=== PATIENT | male | born 1970 | race Caucasian/White ===

== ENCOUNTER → 2019-09-08 16:34 | Outpatient (BNVA) | payer MEDICARE, BC, SELFPAY | PROVIDERS: Family Provider Family Medicine; PCP Family Medicine; Visit Provider Family Medicine | DX: Z94.0 Kidney transplant status (principal) | CPT/HCPCS: 80053; 82570; 84156; 85007; 85027 ==

== ENCOUNTER 2019-09-15 13:21 | Outpatient (CLI) | payer MEDICARE, BC, SELFPAY ==
--- NOTE | 2019-09-15 13:30 | US_ITS ---
WS: [id number] ULTRASOUND RENAL TECHNIQUE: Ultrasound examination of both kidneys. CLINICAL INFORMATION: Kidney transplant COMPARISON: September 13, 2018 FINDINGS: Renal transplant. Pelvic renal transplant in the left lower pelvis. Transplant kidney has a normal ap pearance. No hydronephrosis. Normal medullary pyramids. Normal cortex. Normal peak systolic velocities in the transplanted renal artery. No flow-limiting stenosis. Normal v enous phasicity. Resistive indices are within normal limits ranging from 0.57 to 0.71 Renal transplant measures approximately 12.7 x 6.6 x 5.5 cm Renal transplant cortex measures 1.5 cm ATROPHIC KAKE KIDNEYS Right kidney measures: 8.0 x 5.2 x 5.2 cm Left kidney measures: 8.6 x 4.9 x 4.7 cm Normal visualized aorta. US/US renal BI* [id number] IMPRESSION: 1. Normal corticomedullary echogenicity involving the left lower quadrant renal pelvic transplant. 2. Normal systolic velocities in the transplanted renal artery with normal veno us phasicity. Normal renal parenchymal resistive indices. 4. Slightly atrophic and nonfunctioning resighini kidneys.
--- NOTE | 2019-09-15 14:43 | XR_ITS ---
WS: [id number] SCREENING DEXA SCAN [place] CLINICAL INFORMATION: KIDNEY TRANSPLANT RECIPIENT, OSTEOPOROSIS COMPARISON: FINDINGS: Left forearm bone mineral density measures 0.73 with T score of -2.1 and Z score of -2.1 Left femoral neck bone mineral density measures 0.834 g/cm2. This corresponds to a T score of -1.9 an d Z score of -2.0. Right femoral neck bone mineral density measures 0.831 g/cm2. This corresponds to a T score -1.9of an d Z score of -2.0. Mean femoral neck bone mineral density measures 0.833 g/cm2. This corresponds to a T score of -1.9 an d Z score of -2.0. XR/XR DEXA axial skeleton* [id number] IMPRESSION: Osteopenia. Patient's FRAX calculated 10 year probability for major osteoporotic fracture i s 6.8 % and osteoporotic hip fracture is 2.0%. Since 2019, Left forearm bone mineral density has decreased -2.2% and increased 5.2% in the femoral necks.
== END 2019-09-15 13:22 | disposition home or self-care (01) ==
LOC: RAD 13:21
PROVIDERS: Family Provider Family Medicine; PCP Family Medicine; Visit Provider Family Medicine
DX: Z94.0 Kidney transplant status (principal); M81.0 Age-related osteoporosis without current pathological fracture; N26.1 Atrophy of kidney (terminal); N28.9 Disorder of kidney and ureter, unspecified
CPT/HCPCS: 76770; 77080

== ENCOUNTER → 2019-09-20 10:05 | Outpatient (BNVA) | payer MEDICARE, BC, SELFPAY | PROVIDERS: Family Provider Family Medicine; PCP Family Medicine; Referring Provider Family Medicine; Visit Provider Family Medicine | DX: Z94.0 Kidney transplant status (principal) | CPT/HCPCS: 80053; 80197; 85025 ==

== ENCOUNTER 2019-09-21 09:18 | Day surgery (SDC) | payer MEDICARE, BC, SELFPAY ==
[2019-09-20 14:09] VITALS: BMI 30.9
[2019-09-21 10:47] VITALS: BP 141/92; PULSE 75; RESP 18; TEMP 36.4; O2SAT 98
--- NOTE | 2019-09-21 11:00 | PM.HPUD ---
H&P update H&P Update: DATE OF SURGERY/PROCEDURE: 09/21/19 DATE H&P PERFORMED: 09/14/19 H&P UPDATE INFORMATION: H&P completed within last 30 days and No changes to prior documentation PREOP DIAGNOSIS: History of Dodd's esophagus PLANNED PROCEDURE: Operation Date: 09/21/19 11:30 Proposed Procedures p EGD 07948 K22.10(Not Applicable) - Brayan Hanna MD Full H&P Perinent History: Medical/Surgical History: Medical History (Updated 09/15/19 @ 10:22 by Brayan Hanna MD) Anxiety (Acute) Dodd's esophagus (Chronic) Chronic pain syndrome (Acute) DDD (degenerative disc disease) (Acute) Diabetes (Acute) Hypertension (Acute) Neuropathy (Acute) Peripheral artery disease (Acute) Family History: Family History (Updated 09/14/19 @ 13:39 by FELICIA Rosa) Denies family history of Anesthesia complication Bleeding disorder Social History: Social History Smoking and tobacco status: never smoked Alcohol intake: current Lives independently: Yes Household members: significant other and family Current occupational status: disabled History of recent travel: No
[2019-09-21] MEDS: sodium chloride 0.9% 1,000 ML 30 ML (11:02)
--- NOTE | 2019-09-21 11:31 | ANES.PREANES ---
Pre-Anesthetic Assessment Pre-Anesthetic Assessment: Height/Weight: Height 1.88 m Weight 109.316 kg Temp Pulse Resp BP Pulse Ox 97.6 F 75 18 141/92 98 09/21/19 10:47 09/21/19 10:47 09/21/19 10:47 09/21/19 10:47 09/21/19 10:47 Preop Diagnosis: History of Dodd's esophagus Proposed Procedure: Operation Date: 09/21/19 11:30 Proposed Procedures p EGD 51484 K22.10(Not Applicable) - Brayan Hanna MD Last intake: Intake Last Liquid Date 09/20/19 Last Liquid Time 23:55 Last Solid Date 09/20/19 Last Solid Time 23:55 Social: Social History: Alcohol Exam: Pre-Anes Outpt Exam: alert, oriented x 3, clear to auscultation bilaterally and regular rate & rhythm Airway: Submandibular: WNL Cervical ROM: WNL MP: 2 Dentition: Full History/ROS: No significant history except as noted and No significant complaints Pulmonary: Pulmonary: None reported CV/HEM: CV/HEM: HTN : Comments: hx kidney tx GI: GI: GERD Metabolic: Metabolic: Thyroid Musc/skel: Musc/skel: Lower Back Pain Neuropsych: Neuropsych: Anxiety and Neuropathy Anesthetic Plan: ASA status: III Anesthesia: Anesthesia Evaluation and MAC Risk of > 500 ml blood loss (7ml/kg in children): No PFSH Anesthesia PFSH: Medical History (Updated 09/15/19 @ 10:22 by Brayan Hanna MD) Anxiety (Acute) Dodd's esophagus (Chronic) Chronic pain syndrome (Acute) DDD (degenerative disc disease) (Acute) Diabetes (Acute) Hypertension (Acute) Neuropathy (Acute) Peripheral artery disease (Acute) Surgical History (Updated 09/15/19 @ 10:20 by Brayan Hanna MD) History of colonoscopy (Acute 2016) History of excision of mass (Acute) History of hand surgery (Acute) Bilateral index knuckle replaced. History of kidney transplant (Acute) Status post insertion of spinal cord stimulator (Acute) Family History (Updated 09/14/19 @ 13:39 by FELICIA Rosa) Denies family history of Anesthesia complication Bleeding disorder Social History Smoking and tobacco status: never smoked Alcohol intake: current Lives independently: Yes Household members: significant other and family Current occupational status: disabled History of recent travel: No Data Anesthesia Cardiac Studies: No Data to Display
[2019-09-21 12:26] VITALS: BP 122/80; PULSE 88; RESP 16; TEMP 36.8; O2SAT 98
[2019-09-21 12:49] VITALS: BP 128/75; PULSE 80; RESP 18; TEMP 36.7; O2SAT 98
[2019-09-22 05:55] LABS: H. Pylori / CLO Test Negative
== END 2019-09-21 13:10 | disposition home or self-care (01) ==
PROVIDERS: Family Provider Family Medicine; PCP Family Medicine; Visit Provider Surgery
PROC: 0DJ08ZZ Inspection of Upper Intestinal Tract, Via Natural or Artificial Opening Endoscopic (ICD-10-PCS; CPT 43235; principal; 2019-09-21 11:30)
DX: K21.0 Gastro-esophageal reflux disease with esophagitis (principal); K22.70 Barrett's esophagus without dysplasia; K29.70 Gastritis, unspecified, without bleeding; Z79.891 Long term (current) use of opiate analgesic; Z79.52 Long term (current) use of systemic steroids; E11.40 Type 2 diabetes mellitus with diabetic neuropathy, unspecified; G89.4 Chronic pain syndrome; I10 Essential (primary) hypertension
CPT/HCPCS: 12345; 43239; 87077; 88305; 96365; J2405; J2704; J7030

== ENCOUNTER 2019-10-12 14:22 | Emergency (ER) | payer MEDICARE, BC, SELFPAY ==
[2019-10-12 14:32] VITALS: BP 155/115; PULSE 110; RESP 18; O2SAT 98; BMI 30.8
== END 2019-10-12 15:02 | disposition left against medical advice (07) ==
LOC: ER 14:42
PROVIDERS: Emergency Provider Nurse Practitioner Family; Family Provider Family Medicine; PCP Family Medicine
DX: S61.412A Laceration without foreign body of left hand, initial encounter (principal); X58.XXXA Exposure to other specified factors, initial encounter; Z53.21 Procedure and treatment not carried out due to patient leaving prior to being seen by health care provider
CPT/HCPCS: 99281

== ENCOUNTER → 2019-11-04 14:10 | Outpatient (BNVA) | payer MEDICARE, BC, SELFPAY | PROVIDERS: Family Provider Family Medicine; PCP Family Medicine; Visit Provider Nurse Practitioner | DX: J02.9 Acute pharyngitis, unspecified (principal); R05 Cough | CPT/HCPCS: 87400 ==

== ENCOUNTER → 2019-11-08 09:37 | Outpatient (BNVA) | payer MEDICARE, BC, SELFPAY | PROVIDERS: Family Provider Family Medicine; PCP Family Medicine; Visit Provider Family Medicine | DX: Z94.0 Kidney transplant status (principal) | CPT/HCPCS: 80053; 80197; 85007; 85027 ==

== ENCOUNTER → 2019-11-28 10:38 | Outpatient (BNVA) | payer MEDICARE, BC, SELFPAY | PROVIDERS: Family Provider Family Medicine; PCP Family Medicine; Visit Provider Family Medicine | DX: Z94.0 Kidney transplant status (principal) | CPT/HCPCS: 80053; 80197; 82310; 83970; 85025 ==

== ENCOUNTER → 2020-02-02 09:08 | Outpatient (BNVA) | payer MEDICARE, BC, SELFPAY | PROVIDERS: Family Provider Family Medicine; PCP Family Medicine; Referring Provider Family Medicine; Visit Provider Family Medicine | DX: Z94.0 Kidney transplant status (principal) | CPT/HCPCS: 80053; 80197; 82310; 83970; 85025 ==

== ENCOUNTER → 2020-02-09 09:27 | Outpatient (BNVA) | payer MEDICARE, BC, SELFPAY | PROVIDERS: Family Provider Family Medicine; PCP Family Medicine; Visit Provider Family Medicine | DX: Z94.0 Kidney transplant status (principal) | CPT/HCPCS: 80053; 80197; 81003; 82310; 82575; 83970; 84156; 85007; 85027 ==

== ENCOUNTER 2020-03-02 14:11 | Outpatient (CLI) | payer MEDICARE, BC, SELFPAY ==
[2020-03-02 14:51] LABS: Basophils % 0.7 %; Eosinophils % 0.5 %; Hematocrit 42.9 % (42.0-52.0); Hemoglobin 14.5 g/dL (11.7-16.6); Lymphocytes # 0.5 10^3/uL (0.8-4.8); Lymphocytes % 8.2 %; Mean Corpuscular HGB Conc 33.8 g/dL (30.0-36.0); Mean Corpuscular Hemoglobin 30.3 pg (28.0-34.0); Mean Corpuscular Volume 89.7 fL (80-94); Mean Platelet Volume 10.5 fL (7.4-10.4); Monocytes # 0.4 10^3/uL (0.2-0.9); Monocytes % 6.3 %; Neutrophils # 4.82 10^3/uL (1.8-7.7); Nucleated Red Blood Cells % 0 %; Platelet Count 189 10^3/cmm (130-400); Red Blood Count 4.78 10^6/uL (4.1-5.3); Red Cell Distribution Width 12.3 % (12.1-15.1); White Blood Count 5.7 10^3/uL (4.0-10.0)
[2020-03-02 15:03] LABS: Alanine Aminotransferase 97 U/L (0-41); Albumin Level 4.2 g/dL (3.5-5.2); Alkaline Phosphatase 84 IU/L (40-130); Anion Gap 16.9 (5-19); Aspartate Amino Transferase 70 U/L (0-40); Blood Urea Nitrogen 17 mg/dL (6-20); Calcium 8.7 mg/dL (8.5-10.5); Carbon Dioxide 25 mmol/L (22-29); Chloride 97 mmol/L (98-107); Globulin 2.8 g/dL (1.3-4.6); Glomerular Filtration Rate 58.9 mL/min (90-130); Glucose 345 mg/dL (65-115); Osmolality Calculated 288 mOsm/kg (285-295); Potassium 4.9 mmol/L (3.5-5.1); Sodium 134 mmol/L (136-145); Total Bilirubin 0.4 mg/dL (0.15-1.2)
[2020-03-02 15:04] LABS: Bilirubin Urine Neg (NEGATIVE); Blood Urine 2+ (Negative); Glucose Urine UA 4+ (Normal); Ketones Urine Negative (Negative); Nitrate Urine Negative (Negative); Protein Urine Trace (Negative); Specific Gravity, Urine 1.015 (1.005-1.030); Urine Appearance Clear (CLEAR); Urine Color Yellow (Yellow); Urobilinogen Urine Norm (Negative); pH Urine 5 (5-7)
[2020-03-02 15:05] LABS: Add Urine Microscopic? YES; Leukocyte Esterase Urine Negative (Negative)
[2020-03-02 15:11] LABS: RBC Urine 0-4 /hpf (0-2)
[2020-03-02 15:12] LABS: Add Urine Culture? No; Bacteria Urine TRACE; Squamous Epithelial Cell Urine 0-4 (0-5); WBC Urine 0-4 /hpf (0-5)
[2020-03-02 15:23] LABS: Urine Creatinine 144 mg/dL (39-259)
[2020-03-02 15:27] LABS: UPRO/UCREAT Ratio 0.36 mg/mg CR; Urine Protein Random 52 mg/dL
[2020-03-02 17:51] LABS: Parathyroid Hormone 75.9 pg/mL (15-65)
== END 2020-03-02 14:12 | disposition home or self-care (01) ==
LOC: LAB 14:15
PROVIDERS: Family Provider Family Medicine; PCP Family Medicine; Visit Provider Clinical Nurse Specialist Adult Health
DX: Z94.0 Kidney transplant status (principal)
CPT/HCPCS: 80053; 80197; 81001; 81003; 82310; 82570; 83970; 84156; 85025

== ENCOUNTER → 2020-03-27 09:35 | Outpatient (BNVA) | payer MEDICARE, BC, SELFPAY | PROVIDERS: Family Provider Family Medicine; PCP Family Medicine; Visit Provider Family Medicine | DX: Z48.22 Encounter for aftercare following kidney transplant (principal) | CPT/HCPCS: 80053; 80197; 81000; 82575; 84156; 85025 ==

== ENCOUNTER 2020-03-29 09:01 | Outpatient (CLI) | payer MEDICARE, BC, SELFPAY ==
--- NOTE | 2020-03-29 09:30 | US_ITS ---
WS: [id number] Complete ABDOMINAL ULTRASOUND HISTORY: right upper quadrant pain COMPARISON: None available. Liver: 20.4 cm in length. Liver is moderate to severely enlarged. There is significant attenuation re sulting in poor visualization of the entire liver. Marked hepatic steatosis. No mass identified but t he entire liver is not well visualized. No bile duct dilatation. Gallbladder: Normally distended with no gallstones, wall thickening or pericholecystic fluid. Gallbladder wall thickness: 0.3 cm. Pancreas: Normal size and echogenicity. CBD: 0.3 cm. [place] kidneys are severely atrophied. There is a transplanted kidney just below the [place] LEFT kidn ey. Normal size of the transplanted kidney measures 13.2 cm in length. No hydronephrosis or perinephr ic fluid collections. Spleen: Normal size and echogenicity. Abdominal aorta and IVC are within normal limits. No ascites. US/US abdomen complete* [id number] IMPRESSION: 1. Transplanted LEFT kidney in the LEFT abdomen with no apparent complications . 2. Severe atrophy of the [place] kidneys. 3. Severe hepatic steatosis and moderate to severe hepatomegaly. 4. Normal gallbladder.
== END 2020-03-29 09:02 | disposition home or self-care (01) ==
LOC: US 09:01
PROVIDERS: PCP Family Medicine; Visit Provider Family Medicine
DX: R16.0 Hepatomegaly, not elsewhere classified; K76.0 Fatty (change of) liver, not elsewhere classified; R10.11 Right upper quadrant pain; Z94.0 Kidney transplant status
CPT/HCPCS: 76700

== ENCOUNTER → 2020-07-25 09:17 | Outpatient (BNVA) | payer MEDICARE, BC, SELFPAY | PROVIDERS: PCP Family Medicine; Visit Provider Family Medicine | DX: Z94.0 Kidney transplant status (principal); Z94.83 Pancreas transplant status; Z84.89 Family history of other specified conditions | CPT/HCPCS: 80053; 80197; 81000; 82310; 82340; 83970; 84156; 85025 ==

== ENCOUNTER 2020-09-07 15:54 | Outpatient (CLI) | payer MEDICARE, BC, SELFPAY ==
--- NOTE | 2020-09-07 16:15 | XR_ITS ---
WS: [id number] DEXA (DUAL ENERGY X-RAY ABSORPTIOMETRY) Bone mineral density was performed using a [employer] machine. HISTORY: M85.89 OTHER SPECIFIED DISORDERS OF THE BONE, 50-year-old male. COMPARISON: 09/15/2019 Left forearm BMD: 0.769 g/cm2. T score: -2.2 Z score: -2.2 Total hip BMD: Left: 0.798 g/cm2. T score: -2.1 Z score: -2.2 Right: 0.821 g/cm2. T score: -1.9 Z score: -2.1 10 year probability of a major osteoporotic fracture is 9%. Compared to the prior study from . LEFT forearm bone mineral density has decreased by 1.8%. Bilateral hips bone mineral density has decreased by 2.9%. XR/XR DEXA axial skeleton* [id number] IMPRESSION: OSTEOPENIA. Significant decrease in bone mineral density within the hips since the prior st udy. No significant change in forearm bone mineral density.
== END 2020-09-07 15:55 | disposition home or self-care (01) ==
LOC: RADWPI 15:56
PROVIDERS: PCP Family Medicine; Visit Provider Family Medicine
DX: M85.89 Other specified disorders of bone density and structure, multiple sites (principal)
CPT/HCPCS: 77080

== ENCOUNTER → 2020-09-10 09:22 | Outpatient (BNVA) | payer MEDICARE, BC, SELFPAY | PROVIDERS: PCP Family Medicine; Referring Provider Family Medicine; Visit Provider Internal Medicine | DX: E03.9 Hypothyroidism, unspecified (principal); E11.65 Type 2 diabetes mellitus with hyperglycemia | CPT/HCPCS: 36415; 83036; 84439; 84443; 99205 ==

== ENCOUNTER 2020-09-10 10:31 | Outpatient (CLI) | payer MEDICARE, BC, SELFPAY ==
[2020-09-10 14:05] LABS: Free T4 Free Thyroxine 1.72 ng/dL (0.82-1.77); Thyroid Stimulating Hormone 1.38 uIU/mL (0.27-4.20)
[2020-09-10 15:54] LABS: Estmated Average Glucose 229; Hemoglobin A1C 9.6 % (4.0-6.0)
== END 2020-09-10 10:32 | disposition home or self-care (01) ==
PROVIDERS: PCP Family Medicine; Visit Provider Internal Medicine
DX: E03.9 Hypothyroidism, unspecified (principal); E11.65 Type 2 diabetes mellitus with hyperglycemia
CPT/HCPCS: 36415; 83036; 84439; 84443

== ENCOUNTER 2020-09-11 09:06 | Outpatient (CLI) | payer MEDICARE, BC, SELFPAY ==
--- NOTE | 2020-09-11 | US_ITS ---
RENAL ULTRASOUND HISTORY: kidney transplant COMPARISON: None available. TECHNIQUE: 2-D and color Doppler imaging of the kidney submitted. Right kidney: 8.0 cm x 4.7 cm x 4.8 cm. Severe atrophy and increased echogenicity of the [place] RIGHT kidney. Left kidney: 9.4 cm x 4.5 cm x 4.3 cm. Severe atrophy and increased echogenicity [place] LEFT kidney. There is a transplanted kidney in the LEFT pelvis/abdomen. Normal size kidney measures 12.9 cm in length. There is no hydronephrosis. Normal cortical medullary differentiation. No mass or perinephric fluid collection. There is normal vascularity to the kidney. There is normal systolic and diastolic velocity throughout the transplanted kidney. Velocities are less than 100 cm/s. Very slight increase in the diastolic velocities. Overall very similar appearance as compared to the prior study. Prior to the anastomosis the velocities are slightly increased but stable. As compared to the prior study 09/15/2019 there is been no significant increase in the diastolic versus systolic velocities. There is normal venous flow. Aorta: Normal. Urinary Bladder: Normal distention. IMPRESSION: 1. Transplanted kidney in the LEFT pelvis is stable. No atrophy, venous congestion or perinephric fluid collection. 2. Overall the velocities and waveforms are stable since 09/15/2019. No evidence for developing stenosis. [facility] BI* [id number] IMPRESSION: 1. Transplanted kidney in the LEFT pelvis is stable. No atrophy, venous conges tion or perinephric fluid collection. 2. Overall the velocities and waveforms are stable since 09/15/2019. No evidenc e for developing stenosis.
--- NOTE | 2020-09-11 | US_ITS ---
RENAL ULTRASOUND HISTORY: kidney transplant COMPARISON: None available. TECHNIQUE: 2-D and color Doppler imaging of the kidney submitted. Right kidney: 8.0 cm x 4.7 cm x 4.8 cm. Severe atrophy and increased echogenicity of the [place] RIGHT kidney. Left kidney: 9.4 cm x 4.5 cm x 4.3 cm. Severe atrophy and increased echogenicity [place] LEFT kidney. There is a transplanted kidney in the LEFT pelvis/abdomen. Normal size kidney measures 12.9 cm in length. There is no hydronephrosis. Normal cortical medullary differentiation. No mass or perinephric fluid collection. There is normal vascularity to the kidney. There is normal systolic and diastolic velocity throughout the transplanted kidney. Velocities are less than 100 cm/s. Very slight increase in the diastolic velocities. Overall very similar appearance as compared to the prior study. Prior to the anastomosis the velocities are slightly increased but stable. As compared to the prior study 09/15/2019 there is been no significant increase in the diastolic versus systolic velocities. There is normal venous flow. Aorta: Normal. Urinary Bladder: Normal distention. IMPRESSION: 1. Transplanted kidney in the LEFT pelvis is stable. No atrophy, venous congestion or perinephric fluid collection. 2. Overall the velocities and waveforms are stable since 09/15/2019. No evidence for developing stenosis. MTDD
--- NOTE | 2020-09-11 09:30 | US_ITS ---
WS: [id number] RENAL ULTRASOUND HISTORY: kidney transplant COMPARISON: None available. TECHNIQUE: 2-D and color Doppler imaging of the kidney submitted. Right kidney: 8.0 cm x 4.7 cm x 4.8 cm. Severe atrophy and increased echogenicity of the [place] RIGHT kidney. Left kidney: 9.4 cm x 4.5 cm x 4.3 cm. Severe atrophy and increased echogenicity [place] LEFT kidney. There is a transplanted kidney in the LEFT pelvis/abdomen. Normal size kidney measures 12.9 cm in [place] gth. There is no hydronephrosis. Normal cortical medullary differentiation. No mass or perinephric fl uid collection. There is normal vascularity to the kidney. There is normal systolic and diastolic mary carmen ocity throughout the transplanted kidney. Velocities are less than 100 cm/s. Very slight increase in the diastolic velocities. Overall very similar appearance as compared to the prior study. Prior to th e anastomosis the velocities are slightly increased but stable. As compared to the prior study 020 there is been no significant increase in the diastolic versus systolic velocities. There is myranda l venous flow. Aorta: Normal. Urinary Bladder: Normal distention.
== END 2020-09-11 09:07 | disposition home or self-care (01) ==
LOC: US 09:07
PROVIDERS: PCP Family Medicine; Visit Provider Family Medicine
DX: Z94.0 Kidney transplant status (principal)
CPT/HCPCS: 76770; 76776; 93975

== ENCOUNTER → 2020-09-26 10:10 | Outpatient (BNVA) | payer MEDICARE, BC, SELFPAY | PROVIDERS: PCP Family Medicine; Visit Provider Family Medicine | DX: Z94.0 Kidney transplant status (principal); E03.9 Hypothyroidism, unspecified; E11.65 Type 2 diabetes mellitus with hyperglycemia; F41.9 Anxiety disorder, unspecified | CPT/HCPCS: 80053; 80197; 81000; 82310; 82570; 83970; 84156; 85025 ==

== ENCOUNTER → 2020-10-17 09:55 | Outpatient (BNVA) | payer MEDICARE, BC, SELFPAY | PROVIDERS: PCP Family Medicine; Visit Provider Family Medicine | DX: Z94.0 Kidney transplant status (principal); E03.9 Hypothyroidism, unspecified; E11.65 Type 2 diabetes mellitus with hyperglycemia; Z79.899 Other long term (current) drug therapy | CPT/HCPCS: 80053; 80197; 82306; 82310; 83970; 85025 ==

== ENCOUNTER → 2020-11-05 09:59 | Outpatient (BNVA) | payer MEDICARE, BC, SELFPAY | PROVIDERS: PCP Family Medicine; Visit Provider Internal Medicine | DX: E03.9 Hypothyroidism, unspecified (principal); E11.65 Type 2 diabetes mellitus with hyperglycemia; E21.3 Hyperparathyroidism, unspecified | CPT/HCPCS: 99215 ==

== ENCOUNTER → 2020-12-04 09:51 | Outpatient (BNVA) | payer MEDICARE, BC, SELFPAY | PROVIDERS: PCP Family Medicine; Visit Provider Family Medicine | DX: Z94.0 Kidney transplant status (principal) | CPT/HCPCS: 80197; 85025 ==

== ENCOUNTER → 2021-01-01 09:16 | Outpatient (BNVA) | payer MEDICARE, BC, SELFPAY | PROVIDERS: PCP Family Medicine; Visit Provider Family Medicine | DX: Z94.0 Kidney transplant status (principal); E03.9 Hypothyroidism, unspecified; E11.65 Type 2 diabetes mellitus with hyperglycemia; Z79.899 Other long term (current) drug therapy | CPT/HCPCS: 80053; 80197; 82306; 82310; 83970; 85025 ==

== ENCOUNTER 2021-04-01 10:27 | Outpatient (CLI) | payer MEDICARE, BC, SELFPAY ==
--- NOTE | 2021-04-01 11:00 | USCV_ITS ---
You Wyatt Age: 50 Gender: M : 1970 Exam Date: 04/01/2021 11:05 Ordering Phys: Ivan Galindo MD Technologist: EARLENE [place] [facility] [place]: PAIN AND SWELLING RT LEG 4 DAYS PROCEDURES: Venous duplex imaging was performed in only the right lower extremity. The following venous structures were evaluated: common femoral vein, profunda vein, proximal portion of the greater saphenous vein, superficial femoral vein, and the popliteal vein. In addition, the posterior tibial and peroneal trunk were evaluated. Serial compression, augmentation maneuvers, and spectral Doppler flow evaluation were performed. FINDINGS: Thrombus noted in the right lower extremity extending from the mid femoral vein to the peroneal. All other veins that were evaluated appear free of thrombus at this time. CONCLUSIONS Occlusive DVT right midfemoral vein extending thru popliteal into peroneal vein. Dr Galindo notified of prelim at time of exam Juan Nelson MD (Electronically Signed) Final Date: 01 April 2021 17:46 S
== END 2021-04-01 10:28 | disposition home or self-care (01) ==
LOC: RAD 10:30
PROVIDERS: PCP Family Medicine; Visit Provider Family Medicine
DX: M79.604 Pain in right leg (principal); M79.89 Other specified soft tissue disorders; I82.411 Acute embolism and thrombosis of right femoral vein
CPT/HCPCS: 93971

== ENCOUNTER → 2021-06-27 08:58 | Outpatient (BNVA) | payer MEDICARE, BC, SELFPAY | PROVIDERS: PCP Family Medicine; Visit Provider Internal Medicine | DX: E11.65 Type 2 diabetes mellitus with hyperglycemia (principal); E03.9 Hypothyroidism, unspecified; I73.9 Peripheral vascular disease, unspecified; Z79.4 Long term (current) use of insulin; Z94.0 Kidney transplant status; Z87.891 Personal history of nicotine dependence | CPT/HCPCS: 99214 ==

== ENCOUNTER → 2021-08-06 10:48 | Outpatient (BNVA) | payer MEDICARE, BC, SELFPAY | PROVIDERS: PCP Family Medicine; Visit Provider Family Medicine | DX: Z94.0 Kidney transplant status (principal); I82.431 Acute embolism and thrombosis of right popliteal vein; E11.65 Type 2 diabetes mellitus with hyperglycemia; Z79.4 Long term (current) use of insulin; F41.9 Anxiety disorder, unspecified | CPT/HCPCS: 80053; 82977; 83036; 84439; 84443; 85025 ==

== ENCOUNTER → 2021-08-27 08:50 | Outpatient (BNVA) | payer MEDICARE, BC, SELFPAY | PROVIDERS: PCP Family Medicine; Visit Provider Internal Medicine | DX: E11.65 Type 2 diabetes mellitus with hyperglycemia (principal); E11.649 Type 2 diabetes mellitus with hypoglycemia without coma; E03.9 Hypothyroidism, unspecified; F17.200 Nicotine dependence, unspecified, uncomplicated; Z79.4 Long term (current) use of insulin | CPT/HCPCS: 99214 ==

== ENCOUNTER 2021-09-10 06:58 | Outpatient (CLI) | payer MEDICARE, BC, SELFPAY ==
--- NOTE | 2021-09-10 07:15 | US_ITS ---
WS: [id number] RIGHT UPPER QUADRANT ULTRASOUND HISTORY: KIDNEY TRANSPLANT COMPARISON: 03/29/2020 Liver: 19.5 cm in length. Liver is enlarged and incompletely visualized due to marked attenuation. Th ere is increased echogenicity throughout the liver. Surface of the liver is slightly irregular and no dular suggesting cirrhosis. No mass identified. Portal Vein: Normal hepatopetal flow with monophasic waveform. Gallbladder: Gallbladder is difficult to visualize. There is a large amount shadowing from the region of the gallbladder consistent with a stone filled gallbladder. CBD: 0.4 cm Pancreas: Nearly completely obscured by bowel gas. Poor visualization. Right kidney: 9.9 cm in length. Small echogenic kidney. Cortical thinning throughout the kidney. No h ydronephrosis or solid mass. Aorta and IVC: Small amount of aorta is visualized. The IVC is not well visualized. No ascites. US/US liver [id number] IMPRESSION: 1. Moderate hepatomegaly and changes of cirrhosis. 2. No bile duct dilatation or mass. 3. Severe atrophy and chronic medical renal disease RIGHT kidney. 4. Cholelithiasis.
== END 2021-09-10 06:59 | disposition home or self-care (01) ==
LOC: RAD 07:01
PROVIDERS: PCP Family Medicine; Visit Provider Family Medicine
DX: Z94.0 Kidney transplant status (principal); R16.0 Hepatomegaly, not elsewhere classified; N26.1 Atrophy of kidney (terminal); N18.9 Chronic kidney disease, unspecified; K80.20 Calculus of gallbladder without cholecystitis without obstruction
CPT/HCPCS: 76705

== ENCOUNTER 2022-05-08 07:29 | Outpatient (CLI) | payer MEDICARE, BC, SELFPAY ==
--- NOTE | 2022-05-08 08:00 | US_ITS ---
WS: [id number] Right upper quadrant ultrasound, 05/08/2022 Clinical Data: request from renal transplant team Comparison: Right upper quadrant ultrasound, 09/10/2021 Findings: The gallbladder shows dense shadowing from cholelithiasis. The common bile duct is 0.4 cm and there are no intrahepatic ductal abnormalities. Liver shows no cysts, masses or dilated intrahepatic ducts. The liver is enlarged measuring 21.69 cm with an irregular surface and coarse echotexture. The portal vein shows normal flow. The pancreas is not obscured by overlying bowel gas and no cyst, pseudocyst, or evidence of pancreati tis is noted. The [place] right kidney measures 9.1 cm and no cyst, masses or hydronephrosis can be seen. The aorta and inferior vena cava show no vascular abnormalities. US/US liver [id number] Impression: 1. Cholelithiasis. 2. Hepatomegaly with probable cirrhosis of the liver.
== END 2022-05-08 07:30 | disposition home or self-care (01) ==
LOC: RAD 07:29
PROVIDERS: PCP Family Medicine; Visit Provider Family Medicine
DX: K81.1 Chronic cholecystitis (principal); K76.0 Fatty (change of) liver, not elsewhere classified; Z94.0 Kidney transplant status; R16.0 Hepatomegaly, not elsewhere classified
CPT/HCPCS: 76705

== ENCOUNTER → 2022-07-29 10:38 | Outpatient (BNVA) | payer MEDICARE, BC, SELFPAY | PROVIDERS: PCP Family Medicine; Visit Provider Otolaryngology | DX: K13.70 Unspecified lesions of oral mucosa (principal); F17.220 Nicotine dependence, chewing tobacco, uncomplicated | CPT/HCPCS: 99203 ==

== ENCOUNTER → 2022-08-29 10:54 | Outpatient (BNVA) | payer MEDICARE, BC, SELFPAY | PROVIDERS: PCP Family Medicine; Visit Provider Otolaryngology | DX: K13.70 Unspecified lesions of oral mucosa (principal) | CPT/HCPCS: 40812; 88305; 99213 ==

== ENCOUNTER → 2022-09-12 09:38 | Outpatient (BNVA) | payer MEDICARE, BC, SELFPAY | PROVIDERS: PCP Family Medicine; Visit Provider Otolaryngology | DX: K13.70 Unspecified lesions of oral mucosa (principal); F17.220 Nicotine dependence, chewing tobacco, uncomplicated | CPT/HCPCS: 99212 ==

== ENCOUNTER 2023-04-24 08:38 | Emergency (ER) | payer MEDICARE, BC, SELFPAY ==
[2023-04-24 08:48] VITALS: BP 103/77; PULSE 102; RESP 18; TEMP 36.4; O2SAT 98; BMI 22.3
--- NOTE | 2023-04-24 09:06 | ED_ITS ---
HPI - Nausea/Vomiting/Diarrhea General: Chief complaint: Nausea/Vomiting/Diarrhea Stated complaint: n/v/d ,body ache ,dizzy Time Seen by Provider: 04/24/23 08:48 Source: patient Mode of arrival: ambulatory History of Present Illness: 52-year-old male presents emergency room with persistent nausea and vomiting. He has a history of known hepatic steatosis he also has a history of renal transplant 5 years ago has not been able to keep his antirejection drugs down. He is also had diarrhea with this he denies any fever no hematochezia melena hematemesis or coffee-ground emesis. No other new or different medications. Said subjective fever as well. MD elicited complaint: nausea, vomiting and diarrhea Onset (ago): day(s) Description of vomiting: watery and bilious Description of diarrhea: watery Associated nausea: Yes Associated abdominal pain: No Location of pain: None Exacerbating factors: none Relieving factors: none Associated symtoms: Reports nausea; Denies altered mental status, anxiety, bloating, chest pain, cough, diaphoresis, decreased urine output, dizziness, dysuria, epistaxis, fatigue, fecal incontinence, fevers/chills, headache(s), anorexia, malaise, myalgias, numbness, palpitations, rash, short of breath, syncope, tenesmus, tinnitus or weakness Review of Systems Const: Denies: fever(s), chills, fatigue, malaise or diaphoresis ENMT: Denies: tinnitus or epistaxis Card: Denies: chest pain, palpitations or syncope Resp: Denies: dyspnea, productive cough or non-productive cough GI: Reports: nausea, vomiting and diarrhea; Denies: abdominal pain, hematemesis, coffee ground emesis, bloating, fecal incontinence, hematochezia or melena : Denies: dysuria Skin/Breast: Denies: rash or pruritus Neuro: Denies: headache(s) or dizziness Psych: Denies: anxiety PFSH ED PFSH: Medical History Anxiety Dodd's esophagus Chronic cholecystitis Chronic cough Chronic pain syndrome DDD (degenerative disc disease) Deep venous thrombosis of both popliteal veins Depression Diabetes Encounter for removal of skin lesion Removal of lesion in mouth Erectile dysfunction Hypertension Neuropathy Neuropathy Nonalcoholic hepatosteatosis Peripheral artery disease Surgical History History of colonoscopy (2016) History of esophagogastroduodenoscopy (EGD) (~08/2019) History of esophagogastroduodenoscopy (EGD) (2016) History of excision of mass History of hand surgery Bilateral index knuckle replaced. History of kidney transplant History of kidney transplant Status post biopsy of kidney Status post insertion of spinal cord stimulator Family History Other Cancer History of kidney transplant Lung disease Denies family history of Anesthesia complication Bleeding disorder Social History Smoking and tobacco status: current every day smoker Alcohol intake: current Substance/Drug Use: never Lives independently: Yes Household members: significant other and family Current occupational status: disabled Physical Exam Const: EXAM LIMITATIONS: no altered mental status GENERAL APPEARANCE: cooperative and comfortable ORIENTATION/CONSCIOUSNESS: Yes awake, Yes oriented to person, Yes oriented to place and Yes oriented to time HENMT: COMMON NORMALS: normocephalic, atraumatic and hearing grossly normal bilaterally HEAD & SCALP: normocephalic and atraumatic Resp: COMMON NORMALS: normal respiratory effort, No retractions, No use of accessory muscles and clear to auscultation bilaterally AUSCULTATION: clear to auscultation bilaterally Cardio: COMMON NORMALS: regular rate, regular rhythm and No murmurs present (Cardio) RATE: regular rate RHYTHM: regular rhythm GI: COMMON NORMALS: Soft to palpation and No hepatosplenomegaly present AUSCULTATION: Yes normoactive bowel sounds PALPATION: Yes Soft to palpation, No Tenderness to palpation present (GI), No Guarding due to palpation present (GI) and Yes No hepatosplenomegaly present Extremity: COMMON NORMALS: normal to inspection, capillary refill normal, no clubbing, cyanosis or edema, no calf tenderness and no pedal edema Neuro: SENSORIUM/ORIENTATION: Yes oriented to person, Yes oriented to place and Yes oriented to time Skin: COMMON NORMALS: no rashes or lesions noted GENERAL SKIN EXAM: no rashes or lesions noted Course Vital Signs: Vital signs: Vital Signs Temperature 97.5 F L 04/24/23 08:48 Pulse Rate 92 04/24/23 11:30 Respiratory Rate 18 04/24/23 08:48 Blood Pressure 123/76 04/24/23 11:30 Pulse Oximetry 96 04/24/23 11:30 Oxygen Delivery Me thod Room Air 04/24/23 09:53 MDM - Nausea/Vomiting/Diarrhea Medical Decision Making Improved after IV fluids. Reviewed labs with the patient. Sodium is slightly low and I do not think he is actually symptomatic without fluids we gave him here will be helpful for that his anion gap was normal. His liver functions were also normal T. bili was not elevated at thought on appearance he did have a slight scleral icterus but his T. bili was normal. He is feeling much better we will discharge patient home with promethazine to use as needed clear liquid diet advance as tolerated and recheck if not improved. Medical Records I reviewed the patient's medical records. Lab Data I reviewed the patient's lab results. 04/24/23 09:14 04/24/23 09:14 Laboratory Results WBC 4.10 10^3/uL (3.29-11.43) 04/24/23 09:14 RBC 6.38 10^6/uL (3.85-5.65) H 04/24/23 09:14 Hgb 16.50 g/dL (11.27-16.99) 04/24/23 09:14 Hct 50.2 % (37-53) 04/24/23 09:14 MCV 78.7 fl (82-101) L 04/24/23 09:14 MCH 25.9 pg (27-33) L 04/24/23 09:14 MCHC 32.9 g/dL (30-55) 04/24/23 09:14 RDW 15.6 % (12.1-15.1) H 04/24/23 09:14 Plt Count 141 10^3/cmm (157-399) L 04/24/23 09:14 MPV 11.0 fL (7.4-10.4) H 04/24/23 09:14 Neut % (Auto) 86.5 % 04/24/23 09:14 Lymph % (Auto) 3.7 % 04/24/23 09:14 [place] % (Auto) 8.8 % 04/24/23 09:14 Eos % (Auto) 0.0 % 04/24/23 09:14 Baso % (Auto) 0.5 % 04/24/23 09:14 Neut # (Auto) 3.55 10^3/uL (1.8-7.7) 04/24/23 09:14 Lymph # (Auto) 0.2 10^3/uL (0.8-4.8) L 04/24/23 09:14 [place] # (Auto) 0.4 10^3/uL (0.2-0.9) 04/24/23 09:14 Eos # (Auto) 0.0 10^3/uL (0.0-0.8) 04/24/23 09:14 Baso # (Auto) 0.0 10^3/uL (0.0-0.1) 04/24/23 09:14 Nucleated RBC % (auto) 0 % 04/24/23 09:14 Nucleated RBCs # 0.0 /100WBC 04/24/23 09:14 Sodium 126 mmol/L (136-145) L 04/24/23 09:14 Potassium 3.8 mmol/L (3.5-5.1) 04/24/23 09:14 Chloride 93 mmol/L (98-107) L 04/24/23 09:14 Carbon Dioxide 20 mmol/L (22-29) L 04/24/23 09:14 Anion Gap 16.8 (5-19) 04/24/23 09:14 BUN 35 mg/dL (6-20) H 04/24/23 09:14 Creatinine 1.6 mg/dL (0.7-1.2) H 04/24/23 09:14 GFR Calculation 45.8 mL/min (90-130) L 04/24/23 09:14 Glucose 253 mg/dL (65-115) H 04/24/23 09:14 Calculated Osmolality 279 mOsm/kg (285-295) L 04/24/23 09:14 Calcium 10.9 mg/dL (8.5-10.5) H 04/24/23 09:14 Total Bilirubin 0.7 mg/dL (0.15-1.2) 04/24/23 09:14 AST 27 U/L (0-40) 04/24/23 09:14 ALT 24 U/L (0-41) 04/24/23 09:14 Alkaline Phosphatase 69 U/L (40-130) 04/24/23 09:14 Total Protein 7.3 g/dL (6.6-8.7) 04/24/23 09:14 Albumin 3.9 g/dL (3.5-5.2) 04/24/23 09:14 Globulin 3.4 g/dL (1.3-4.6) 04/24/23 09:14 Urine Color Yellow (Yellow) 04/24/23 10:15 Urine Appearance Clear (CLEAR) 04/24/23 10:15 Urine pH 5 (5-7) 04/24/23 10:15 Ur Specific [place] 1.020 (1.005-1.030) 04/24/23 10:15 Urine Protein 1+ (Negative) H 04/24/23 10:15 Urine Glucose (UA) Trace (Normal) H 04/24/23 10:15 Urine Ketones 1+ (Negative) H 04/24/23 10:15 Urine Blood Neg (Negative) 04/24/23 10:15 Urine Nitrate Negative (Negative) 04/24/23 10:15 Urine Bilirubin Neg (Negative) 04/24/23 10:15 Urine Urobilinogen Norm mg/dL (Negative) 04/24/23 10:15 Ur Leukocyte Esterase Negative (Negative) 04/24/23 10:15 Urine RBC 0-4 /hpf (0-2) H 04/24/23 10:15 Urine WBC 0-4 /hpf (0-5) H 04/24/23 10:15 Ur Squamous Epith Cells 0-4 /hpf (0-5) H 04/24/23 10:15 Amorphous Sediment 1+ /hpf 04/24/23 10:15 Urine Bacteria 1+ /hpf (NONE) H 04/24/23 10:15 Hyaline Casts 5-10 /lpf H 04/24/23 10:15 Coarse Granular Casts 0-4 /lpf H 04/24/23 10:15 Urine Mucus Trace /hpf 04/24/23 10:15 Discharge Plan Discharge Condition: Stable Prescriptions: No Action albuterol sulfate [ProAir HFA] 90 mcg/actuation HFA aerosol inhaler 2 puff INHALATION Q4H PRN (Reason: Shortness Of Breath) omeprazole 20 mg capsule,delayed release(DR/EC) 20 mg PO BID fluticasone propionate [Allergy Relief (fluticasone)] 50 mcg/actuation spray,suspension 2 spray INTRANASAL DAILY PRN (Reason: Allergy Symptoms) magnesium oxide 400 mg (241.3 mg magnesium) tablet 400 mg PO BID mycophenolate sodium [Myfortic] 360 mg tablet,delayed release (DR/EC) 360 mg PO BID prednisone 5 mg tablet 5 mg PO QAM docusate sodium [Colace] 100 mg capsule 100 mg PO BID gabapentin 300 mg capsule 600 mg PO TID (DME) FreeStyle Soumya 2 [place] Misc See Rx Instructions .Route Qty: 1 0RF Rx Instructions: check blood sugar (DME) FreeStyle Soumya 2 Sensor Kit See Rx Instructions .Route Qty: 2 3RF Rx Instructions: check blood sugar (DME) pen needle, diabetic [Comfort EZ Pen [place]] 31 gauge x 1/4 needle See Rx Instructions .Route Qty: 300 3RF Rx Instructions: use with insulin pens 90 day supply benzonatate 100 mg capsule 100 mg PO TID PRN (Reason: cough) Qty: 60 1RF hydrocortisone [Anusol-HC] 2.5 % cream with perineal applicator 1 applic [place] DAILY PRN (Reason: hemorrhoids) Qty: 30 2RF alprazolam 1 mg tablet 1 mg PO BID PRN (Reason: anxiety) Qty: 60 4RF hydrocodone-acetaminophen 10-325 mg tablet 1 tab PO TID PRN (Reason: pain) 30 Days Qty: 90 0RF ondansetron HCl 4 mg tablet 4 mg PO Q8H PRN (Reason: nausea and vomiting) Qty: 20 1RF amlodipine 10 mg tablet 10 mg PO QAM nortriptyline 10 mg capsule 20 mg PO BEDTIME Super B [id number] Tablet 1 tab PO DAILY Phospha 250 Neutral 250 mg tablet 2 tab PO BID Trulicity 1.5 mg/0.5 mL pen injector 1.5 mg SUBCUT Q7D Rx Instructions: on thu Envarsus XR 1 mg tablet extended release 24 hr 3 mg PO QAM levothyroxine 100 mcg tablet 100 mcg PO QAM tadalafil 20 mg tablet 20 mg PO DAILY PRN (Reason: Erectile Dysfunction) Xarelto 20 mg tablet 20 mg PO BEDTIME Referrals: Ivan Galindo MD [Primary Care Provider] - Coding Level of Care Code ED V[employer]er Slicing Machine Operator for Honorio Oneill
[2023-04-24] MEDS: ondansetron 2 mg/ML SDV 2 mL 4 MG IVP (09:28)
[2023-04-24] MEDS: sodium chloride 0.9% 1,000 ML 999 ML IV ×2 (09:28→10:24)
[2023-04-24 09:41] LABS: Basophils % 0.5 %; Hematocrit 50.2 % (37-53); Lymphocytes # 0.2 10^3/uL (0.8-4.8); Lymphocytes % 3.7 %; Mean Corpuscular HGB Conc 32.9 g/dL (30-55); Mean Corpuscular Hemoglobin 25.9 pg (27-33); Mean Corpuscular Volume 78.7 fl (82-101); Monocytes # 0.4 10^3/uL (0.2-0.9); Monocytes % 8.8 %; Neutrophils # 3.55 10^3/uL (1.8-7.7); Neutrophils % 86.5 %; Nucleated Red Blood Cells % 0 %; Platelet Count 141 10^3/cmm (157-399); Red Blood Count 6.38 10^6/uL (3.85-5.65); Red Cell Distribution Width 15.6 % (12.1-15.1)
[2023-04-24 09:53] VITALS: BP 117/88; PULSE 93; O2SAT 96
[2023-04-24 10:02] LABS: Alanine Aminotransferase 24 U/L (0-41); Albumin Level 3.9 g/dL (3.5-5.2); Alkaline Phosphatase 69 U/L (40-130); Blood Urea Nitrogen 35 mg/dL (6-20); Calcium 10.9 mg/dL (8.5-10.5); Carbon Dioxide 20 mmol/L (22-29); Chloride 93 mmol/L (98-107); Globulin 3.4 g/dL (1.3-4.6); Glomerular Filtration Rate 45.8 mL/min (90-130); Glucose 253 mg/dL (65-115); Osmolality Calculated 279 mOsm/kg (285-295); Sodium 126 mmol/L (136-145); Total Bilirubin 0.7 mg/dL (0.15-1.2); Total Protein 7.3 g/dL (6.6-8.7)
[2023-04-24 10:08] LABS: Anion Gap 16.8 (5-19); Aspartate Amino Transferase 27 U/L (0-40); Potassium 3.8 mmol/L (3.5-5.1)
[2023-04-24 10:12] LABS: Slide Review Slide Review Perform
[2023-04-24 11:00] VITALS: BP 136/87; PULSE 91; O2SAT 100
[2023-04-24 11:07] LABS: Add Urine Microscopic? YES; Bilirubin Urine Neg (Negative); Blood Urine Neg (Negative); Glucose Urine UA Trace (Normal); Ketones Urine 1+ (Negative); Leukocyte Esterase Urine Negative (Negative); Nitrate Urine Negative (Negative); Protein Urine 1+ (Negative); RBC Urine 0-4 /hpf (0-2); Urine Appearance Clear (CLEAR); Urine Color Yellow (Yellow); Urobilinogen Urine Norm (Negative); WBC Urine 0-4 /hpf (0-5); pH Urine 5 (5-7)
[2023-04-24 11:08] LABS: Add Urine Culture? No; Amorphous Sediment Urine 1+ /hpf; Bacteria Urine 1+ /hpf; Coarse Granular Casts Urine 0-4 /lpf; Mucus Urine TRACE /hpf; Squamous Epithelial Cell Urine 0-4 /hpf (0-5)
--- NOTE | 2023-04-24 11:17 | PC.PHAR ---
pt states he takes care of his own medications-pt states humulin r u 500 was dced pt states he hasnt taken in months states he is only using trulicity-
[2023-04-24 11:30] VITALS: BP 123/76; PULSE 92; O2SAT 96
== END 2023-04-24 12:46 | disposition home or self-care (01) ==
PROVIDERS: Emergency Provider Family Medicine; PCP Family Medicine
DX: R11.2 Nausea with vomiting, unspecified (principal); Z79.85 Long-term (current) use of injectable non-insulin antidiabetic drugs; F17.210 Nicotine dependence, cigarettes, uncomplicated; E11.9 Type 2 diabetes mellitus without complications; I10 Essential (primary) hypertension; Z94.0 Kidney transplant status
CPT/HCPCS: 36415; 80053; 81001; 85025; 96361; 96374; 99284; J2405; J7030

== ENCOUNTER → 2023-05-18 10:27 | Outpatient (BNVA) | payer MEDICARE, BC, SELFPAY | PROVIDERS: PCP Family Medicine; Visit Provider Podiatrist Foot & Ankle Surgery | DX: B35.1 Tinea unguium (principal); E11.649 Type 2 diabetes mellitus with hypoglycemia without coma; I73.9 Peripheral vascular disease, unspecified | CPT/HCPCS: 11721; 99203 ==

== ENCOUNTER → 2023-07-27 10:04 | Outpatient (BNVA) | payer MEDICARE, BC, SELFPAY | PROVIDERS: PCP Family Medicine; Visit Provider Podiatrist Foot & Ankle Surgery | DX: B35.1 Tinea unguium (principal); E11.649 Type 2 diabetes mellitus with hypoglycemia without coma; I73.9 Peripheral vascular disease, unspecified | CPT/HCPCS: 11721 ==

== ENCOUNTER 2023-08-12 08:53 | Outpatient (CLI) | payer MEDICARE, BC, SELFPAY ==
--- NOTE | 2023-08-12 09:15 | US_ITS ---
WS: [id number] ULTRASOUND ABDOMEN CLINICAL INFORMATION: increased pain under left rib cage History of renal transplant COMPARISON: Ultrasound 05/08/2022 FINDINGS: Liver Size: Enlarged Craniocaudal length: 16.7 cm. Echogenicity: Coarse Surface nodularity: None. Mass (size and location): None. Bile ducts Intrahepatic ducts: Normal. Common bile duct diameter: 0.5 cm. Gallbladder Shadowing cholelithiasis. Gallbladder sludge. No gallbladder wall thickening or pericholecystic fluid . Normal common bile duct. Gallstones: Present gallbladder sludge: Present gallbladder wall thickening: None. Pericholecystic fluid: None. Sonographic Senior sign: Absent. Pancreas Normal as visualized. Spleen Splenomegaly: None. Craniocaudal length: 13.0 cm. Right kidney: Complex lesion RIGHT kidney measuring 2.9 x 3.7 x 3.2 cm with peripheral vascularity. T his is indeterminant and neoplasm not excluded. This can be further evaluated with contrast-enhanced CT of the abdomen and pelvis or MRI kidneys. Hydronephrosis: None. Size: 9.1 cm x 5.8 cm x 4.0 cm Left kidney: Simple cyst measuring 1.4 x 1.8 cm Hydronephrosis: None. Size: 7.6 cm x 3.7 cm x 4.4 cm. Transplant kidney measures 12.9 x 5.2 x 5.2 cm. No hydronephrosis. Abdominal aorta and IVC Visualized portions are normal. Ascites: None. IMPRESSION: 1. Mild hepatomegaly with coarse hepatic echogenicity likely due to fatty infiltration. Recommend co rrelation with liver function tests. 2. Shadowing cholelithiasis. Gallbladder sludge. No gallbladder wall thickening or pericholecystic f luid. 3. Normal common bile duct. 4. Indeterminant complex lesion RIGHT habematolel kidney with peripheral vascularity. Neoplasm not exclud ed. Recommend further evaluation with contrast-enhanced CT abdomen pelvis or MRI kidneys without and with gadolinium enhancement. 5. Pelvic transplant kidney is normal in appearance. 6. Normal spleen. 7. Atrophic habematolel kidneys.
== END 2023-08-12 08:54 | disposition home or self-care (01) ==
LOC: RAD 08:53
PROVIDERS: PCP Family Medicine; Visit Provider Family Medicine
DX: K80.20 Calculus of gallbladder without cholecystitis without obstruction (principal); N28.9 Disorder of kidney and ureter, unspecified; R16.0 Hepatomegaly, not elsewhere classified; R10.12 Left upper quadrant pain; K76.0 Fatty (change of) liver, not elsewhere classified; Z94.0 Kidney transplant status
CPT/HCPCS: 76700

== ENCOUNTER → 2023-09-28 13:11 | Outpatient (BNVA) | payer MEDICARE, BC, SELFPAY | PROVIDERS: PCP Family Medicine; Visit Provider Podiatrist Foot & Ankle Surgery | DX: L60.0 Ingrowing nail (principal); L60.8 Other nail disorders; B35.1 Tinea unguium; E11.649 Type 2 diabetes mellitus with hypoglycemia without coma; I73.9 Peripheral vascular disease, unspecified; Z79.85 Long-term (current) use of injectable non-insulin antidiabetic drugs | CPT/HCPCS: 11750; A6219 ==

== ENCOUNTER → 2023-10-12 13:05 | Outpatient (BNVA) | payer MEDICARE, BC, SELFPAY | PROVIDERS: PCP Family Medicine; Visit Provider Podiatrist Foot & Ankle Surgery | DX: L03.031 Cellulitis of right toe (principal); L60.0 Ingrowing nail; B35.1 Tinea unguium; E11.649 Type 2 diabetes mellitus with hypoglycemia without coma; I73.9 Peripheral vascular disease, unspecified; G62.9 Polyneuropathy, unspecified | CPT/HCPCS: 11721; 99213 ==

== ENCOUNTER 2023-10-18 13:34 | Emergency (ER) | payer MEDICARE, BC, SELFPAY ==
[2023-10-18 13:35] VITALS: BP 123/86; PULSE 116; RESP 14; TEMP 36.6; O2SAT 99
--- NOTE | 2023-10-18 13:44 | W.ED.BURNSMK ---
HPI - Burn/Smoke Inhalation General: Chief complaint: Burn/Smoke Inhalation Stated complaint: Edge to lower left leg Time Seen by Provider: 10/18/23 13:40 History of Present Illness: 53-year-old male patient was working with molten copper and accidentally brushed up against the hot cast with his pant leg. Patient accidentally burned himself and has 2 areas of blistering of skin. Patient cannot recall his last tetanus and agreed to have it updated. Patient has multiple health problems including kidney cancer and kidney transplant. Review of Systems General: Reports: 10 or more systems reviewed and unremarkable except in HPI and below Skin/Breast: Reports: new lesions PFSH ED PFSH: Medical History Encounter for removal of skin lesion Removal of lesion in mouth Depression Neuropathy Nonalcoholic hepatosteatosis Erectile dysfunction Chronic cough Deep venous thrombosis of both popliteal veins Chronic cholecystitis Hypertension Neuropathy Anxiety Diabetes DDD (degenerative disc disease) Dodd's esophagus Peripheral artery disease Chronic pain syndrome Surgical History History of esophagogastroduodenoscopy (EGD) (2016) History of esophagogastroduodenoscopy (EGD) (~08/2019) Status post biopsy of kidney History of kidney transplant History of excision of mass History of kidney transplant History of colonoscopy (2015) History of hand surgery Bilateral index knuckle replaced. Status post insertion of spinal cord stimulator Family History Other Cancer History of kidney transplant Lung disease Denies family history of Anesthesia complication Bleeding disorder Social History Smoking and tobacco/nicotine status: current every day tobacco/nicotine user Alcohol intake: current Substance/Drug Use: never Lives independently: Yes Household members: significant other and family Current occupational status: disabled Physical Exam Const: COMMON NORMALS: alert HENMT: COMMON NORMALS: atraumatic HEAD & SCALP: atraumatic Neck/C-Spine: COMMON NORMALS: full ROM Resp: COMMON NORMALS: normal respiratory effort Cardio: COMMON NORMALS: regular rate RATE: regular rate Extremity: LEFT LOWER EXTREMITY: Yes lower leg (2 areas of mild blistering to the left lower lateral leg) Neuro: SENSORIUM/ORIENTATION: Yes alert Skin: NARRATIVE SKIN EXAM: Patient has to areas of blistering to the left lower leg. The anterior area is more superficial than the lateral area. Lateral area has a ruptured blister with pink dermis exposed. Patient reports pain. Course Vital Signs: Vital signs: Vital Signs Temperature 97.9 F 10/18/23 13:35 Pulse Rate 116 H 10/18/23 13:35 Respiratory Rate 14 10/18/23 13:35 Blood Pressure 123/86 10/18/23 13:35 Pulse Oximetry 99 10/18/23 13:35 Oxygen Delivery Me thod Room Air 10/18/23 13:35 MDM - Burn/Smoke Inhalation Medical Decision Making 53-year-old male patient comes in today for complaints of acute burn. Patient was working with molten metal and accidentally brushed his leg up against the cast causing a burn to his left lower leg. Patient has 2 areas of burn to the left anterior and lateral leg. Left anterior area is more superficial than the lateral area. Patient does have chronic medical history including kidney transplant and cancer. Patient at this time is on antibiotics for a toenail removal. We will go ahead and and dressed the wound with bacitracin antibiotic ointment and a nonstick dressing. Patient was recommended to continue with this until follow-up in 3 days with primary care. At that time he needs to be reevaluated and considered for wound care specialty. Patient was written a prescription for hydrocodone to help with pain, and bacitracin ointment. Patient's tetanus was updated. Differential diagnosis includes not limited to thermal burn, need for prophylaxis tetanus, need for prophylaxis antibiotic, need for chronic wound management. No radiology studies performed this visit Discharge Plan Discharge Patient Disposition: Home Clinical Impression: Partial thickness burn Condition: Stable Prescriptions: New bacitracin 500 unit/gram ointment 1 applic topical BID Qty: 28 0RF hydrocodone-acetaminophen 5-325 mg tablet 1 tab PO Q6H PRN (Reason: pain) Qty: 7 0RF No Action albuterol sulfate [ProAir HFA] 90 mcg/actuation HFA aerosol inhaler 2 puff INHALATION Q4H PRN (Reason: Shortness Of Breath) omeprazole 20 mg capsule,delayed release(DR/EC) 20 mg PO BID fluticasone propionate [Allergy Relief (fluticasone)] 50 mcg/actuation spray,suspension 2 spray INTRANASAL DAILY PRN (Reason: Allergy Symptoms) magnesium oxide 400 mg (241.3 mg magnesium) tablet 400 mg PO BID mycophenolate sodium [Myfortic] 360 mg tablet,delayed release (DR/EC) 360 mg PO BID prednisone 5 mg tablet 5 mg PO QAM docusate sodium [Colace] 100 mg capsule 100 mg PO BID gabapentin 300 mg capsule 600 mg PO TID sulfamethoxazole-trimethoprim [Bactrim DS] 800-160 mg tablet 1 tab PO Q12H Qty: 14 0RF (DME) FreeStyle Soumya 2 [place] Misc See Rx Instructions .Route Qty: 1 0RF Rx Instructions: check blood sugar (DME) FreeStyle Soumya 2 Sensor Kit See Rx Instructions .Route Qty: 2 3RF Rx Instructions: check blood sugar (DME) pen needle, diabetic [Comfort EZ Pen [place]] 31 gauge x 1/4 needle See Rx Instructions .Route Qty: 300 3RF Rx Instructions: use with insulin pens 90 day supply benzonatate 100 mg capsule 100 mg PO TID PRN (Reason: cough) Qty: 60 1RF hydrocortisone [Anusol-HC] 2.5 % cream with perineal applicator 1 applic [place] DAILY PRN (Reason: hemorrhoids) Qty: 30 2RF ondansetron HCl 4 mg tablet 4 mg PO Q8H PRN (Reason: nausea and vomiting) Qty: 20 1RF (DME) diabetic shoes with 3 inserts See Rx Instructions .Route .MEDSUPPLY Qty: 1 0RF Rx Instructions: As directed tadalafil 20 mg tablet 20 mg PO DAILY PRN (Reason: Erectile Dysfunction) Qty: 20 4RF alprazolam 1 mg tablet 1 mg PO BID PRN (Reason: anxiety) Qty: 60 4RF hydrocodone-acetaminophen 7.5-325 mg tablet 1 tab PO Q6H PRN (Reason: pain) 30 Days Qty: 120 0RF amlodipine 10 mg tablet 10 mg PO QAM nortriptyline 10 mg capsule 20 mg PO BEDTIME Super B [id number]-B-[id number] Tablet 1 tab PO DAILY Phospha 250 Neutral 250 mg tablet 2 tab PO BID Trulicity 1.5 mg/0.5 mL pen injector 1.5 mg SUBCUT Q7D Rx Instructions: on thu Envarsus XR 1 mg tablet extended release 24 hr 3 mg PO QAM levothyroxine 100 mcg tablet 100 mcg PO QAM Xarelto 20 mg tablet 20 mg PO BEDTIME promethazine 25 mg tablet 25 mg PO Q6H PRN (Reason: nausea and vomiting) Qty: 20 0RF Discharge Orders: Discharge ED (Routine); Ordered 10/18/23 Ordered By: David Christian Referrals: Ivan Galindo MD [Primary Care Provider] - Patient Instructions: Second-Degree Burn (ED), Opioid Safety Activity Restrictions/Additional Instructions: Apply bacitracin antibiotic ointment 1-2 times a day to wounds until healed. Use hydrocodone or other medications for pain as needed. Drink plenty of water with medications. Follow-up with primary care in 2 to 3 days for recheck. Return to ED for worsening symptoms such as increased swelling and redness, high fever, or new concerns. Coding Level of Care Code ED Compensation Intern for Honorio Oneill
[2023-10-18] MEDS: bacitracin ointment Pkt 1 EACH TOPICAL (14:01)
[2023-10-18] MEDS: HYDROcodone-acetaminophen 5-325 mg Tablet 2 TAB PO (14:01)
[2023-10-18] MEDS: tetanus-dipt-pertussis 0.5 mL SDV IM (14:06)
== END 2023-10-18 14:17 | disposition home or self-care (01) ==
PROVIDERS: Emergency Provider Nurse Practitioner Family; PCP Family Medicine
DX: T24.202A Burn of second degree of unspecified site of left lower limb, except ankle and foot, initial encounter (principal); X19.XXXA Contact with other heat and hot substances, initial encounter; I10 Essential (primary) hypertension; E11.42 Type 2 diabetes mellitus with diabetic polyneuropathy; Z94.0 Kidney transplant status; Z72.0 Tobacco use; Z23 Encounter for immunization
CPT/HCPCS: 90471; 90715; 99283

== ENCOUNTER → 2023-12-14 14:14 | Outpatient (BNVA) | payer MEDICARE, BC, SELFPAY | PROVIDERS: PCP Family Medicine; Visit Provider Podiatrist Foot & Ankle Surgery | DX: B35.1 Tinea unguium (principal); E11.649 Type 2 diabetes mellitus with hypoglycemia without coma; I73.9 Peripheral vascular disease, unspecified; G62.9 Polyneuropathy, unspecified | CPT/HCPCS: 11721 ==

== ENCOUNTER → 2024-02-18 13:45 | Outpatient (BNVA) | payer MEDICARE, BC, SELFPAY | PROVIDERS: PCP Family Medicine; Visit Provider Podiatrist Foot & Ankle Surgery | DX: B35.1 Tinea unguium (principal); E11.649 Type 2 diabetes mellitus with hypoglycemia without coma; I73.9 Peripheral vascular disease, unspecified; G62.9 Polyneuropathy, unspecified | CPT/HCPCS: 11721 ==

== ENCOUNTER → 2024-04-28 13:44 | Outpatient (BNVA) | payer MEDICARE, BC, SELFPAY | PROVIDERS: PCP Family Medicine; Visit Provider Podiatrist Foot & Ankle Surgery | DX: B35.1 Tinea unguium (principal); E11.649 Type 2 diabetes mellitus with hypoglycemia without coma; I73.9 Peripheral vascular disease, unspecified; G62.9 Polyneuropathy, unspecified | CPT/HCPCS: 11721 ==

== ENCOUNTER → 2024-06-30 13:21 | Outpatient (BNVA) | payer MEDICARE, BC, SELFPAY | PROVIDERS: PCP Family Medicine; Visit Provider Podiatrist Foot & Ankle Surgery | DX: B35.1 Tinea unguium (principal); E11.649 Type 2 diabetes mellitus with hypoglycemia without coma; I73.9 Peripheral vascular disease, unspecified; G62.9 Polyneuropathy, unspecified; E11.42 Type 2 diabetes mellitus with diabetic polyneuropathy | CPT/HCPCS: 11721 ==

== ENCOUNTER → 2024-09-01 13:33 | Outpatient (BNVA) | payer MEDICARE, BC, SELFPAY | PROVIDERS: PCP Family Medicine; Visit Provider Podiatrist Foot & Ankle Surgery | DX: B35.1 Tinea unguium (principal); E11.649 Type 2 diabetes mellitus with hypoglycemia without coma; I73.9 Peripheral vascular disease, unspecified; G62.9 Polyneuropathy, unspecified | CPT/HCPCS: 11721; 99213 ==

== ENCOUNTER 2024-09-06 09:40 | Outpatient (CLI) | payer MEDICARE, BC, SELFPAY ==
--- NOTE | 2024-09-06 09:47 | XR_ITS ---
WS: [id number] XR shoulder RT min 2V* [id number] REASON FOR EXAM: increased pain in right shoulder/scapula FINDINGS: No fracture or focal bone lesion. Mild narrowing of the acromioclavicular joint with moderate subchondral sclerosis and mild osteophyto sis. Glenohumeral joint space is not well demonstrated. Likely mild narrowing. Mild subchondral sclerosis of the glenoid. Moderate sclerosis and cystic change in the greater biceps tuberosity. Unusual extensive vascular calcifications in the axillary and shoulder region. 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 Moderate rotator cuff tendon arthropathy.
== END 2024-09-06 09:41 | disposition home or self-care (01) ==
PROVIDERS: PCP Family Medicine; Visit Provider Family Medicine
DX: M19.111 Post-traumatic osteoarthritis, right shoulder (principal); S46.009S Unspecified injury of muscle(s) and tendon(s) of the rotator cuff of unspecified shoulder, sequela; X58.XXXS Exposure to other specified factors, sequela; R93.89 Abnormal findings on diagnostic imaging of other specified body structures
CPT/HCPCS: 73030

== ENCOUNTER → 2024-09-15 08:02 | Outpatient (BNVA) | payer MEDICARE, BC, SELFPAY | PROVIDERS: PCP Family Medicine; Visit Provider Physician Assistant | DX: M12.811 Other specific arthropathies, not elsewhere classified, right shoulder (principal); M75.41 Impingement syndrome of right shoulder | CPT/HCPCS: 20610; 73030; 99203; J3301 ==

== ENCOUNTER → 2024-09-24 12:09 | Outpatient (BNVA) | payer MEDICARE, BC, SELFPAY | PROVIDERS: PCP Family Medicine; Visit Provider Emergency Medicine | DX: J06.9 Acute upper respiratory infection, unspecified (principal); J20.8 Acute bronchitis due to other specified organisms; B96.89 Other specified bacterial agents as the cause of diseases classified elsewhere; D84.9 Immunodeficiency, unspecified | CPT/HCPCS: 87400; 87426 ==

== ENCOUNTER → 2024-10-11 08:22 | Outpatient (BNVA) | payer MEDICARE, BC, SELFPAY | PROVIDERS: PCP Family Medicine; Referring Provider Family Medicine; Visit Provider Psychiatry & Neurology Neurology | DX: G62.9 Polyneuropathy, unspecified (principal); M75.41 Impingement syndrome of right shoulder; G56.03 Carpal tunnel syndrome, bilateral upper limbs | CPT/HCPCS: 95885; 95913 ==

== ENCOUNTER → 2024-11-02 14:46 | Outpatient (BNVA) | payer MEDICARE, BC, SELFPAY | PROVIDERS: PCP Family Medicine; Visit Provider Podiatrist Foot & Ankle Surgery | DX: E11.42 Type 2 diabetes mellitus with diabetic polyneuropathy (principal); B35.1 Tinea unguium; L84 Corns and callosities; E11.649 Type 2 diabetes mellitus with hypoglycemia without coma; I73.9 Peripheral vascular disease, unspecified; G62.9 Polyneuropathy, unspecified | CPT/HCPCS: 11055; 11721 ==

== ENCOUNTER → 2024-11-09 10:56 | Outpatient (BNVA) | payer MEDICARE, BC, SELFPAY | PROVIDERS: PCP Family Medicine; Visit Provider Physician Assistant | DX: M75.41 Impingement syndrome of right shoulder (principal) | CPT/HCPCS: 99213 ==

== ENCOUNTER 2024-12-13 10:39 | Outpatient (CLI) | payer MEDICARE, BC, SELFPAY ==
--- NOTE | 2024-12-13 10:44 | XR_ITS ---
WS: [id number] Exam: XR tibia fibula LT 2V [id number] Date/Time of Exam: 12/13/2024 10:45 AM Reason For Exam: continued pain 2 wks post leg trauma No acute fracture. No soft tissue foreign bodies. Extensive vascular calcifications about the lower leg. XR/XR tibia fibula LT 2V [id number] IMPRESSION: 1. No fracture. 2. Extensive vascular calcifications about the lower leg.
== END 2024-12-13 10:40 | disposition home or self-care (01) ==
LOC: LAB 10:41
PROVIDERS: PCP Family Medicine; Visit Provider Family Medicine
DX: E11.649 Type 2 diabetes mellitus with hypoglycemia without coma (principal); I70.90 Unspecified atherosclerosis
CPT/HCPCS: 73590; 83036

== ENCOUNTER → 2025-01-10 08:28 | Outpatient (BNVA) | payer MEDICARE, BC, SELFPAY | PROVIDERS: PCP Family Medicine; Visit Provider Podiatrist Foot & Ankle Surgery | DX: I73.9 Peripheral vascular disease, unspecified (principal); B35.1 Tinea unguium; L84 Corns and callosities; E11.649 Type 2 diabetes mellitus with hypoglycemia without coma; G62.9 Polyneuropathy, unspecified; M25.373 Other instability, unspecified ankle; E11.42 Type 2 diabetes mellitus with diabetic polyneuropathy; M25.371 Other instability, right ankle; M25.372 Other instability, left ankle | CPT/HCPCS: 11056; 11721; 99213 ==

== ENCOUNTER → 2025-03-14 09:14 | Outpatient (BNVA) | payer MEDICARE, BC, SELFPAY | PROVIDERS: PCP Family Medicine; Visit Provider Podiatrist Foot & Ankle Surgery | DX: E11.42 Type 2 diabetes mellitus with diabetic polyneuropathy (principal); B35.1 Tinea unguium; L84 Corns and callosities; E11.649 Type 2 diabetes mellitus with hypoglycemia without coma; I73.9 Peripheral vascular disease, unspecified; G62.9 Polyneuropathy, unspecified; M25.373 Other instability, unspecified ankle | CPT/HCPCS: 11721 ==

== ENCOUNTER → 2025-05-24 07:54 | Outpatient (BNVA) | payer MEDICARE, BC, SELFPAY | PROVIDERS: PCP Family Medicine; Visit Provider Podiatrist Foot & Ankle Surgery | DX: E11.42 Type 2 diabetes mellitus with diabetic polyneuropathy (principal); B35.1 Tinea unguium; L84 Corns and callosities; E11.649 Type 2 diabetes mellitus with hypoglycemia without coma; I73.9 Peripheral vascular disease, unspecified; G62.9 Polyneuropathy, unspecified | CPT/HCPCS: 11721 ==

== ENCOUNTER 2025-05-27 15:12 | Emergency (ER) | payer MEDICARE, BC, SELFPAY ==
[2025-05-27 15:15] VITALS: BP 121/76; PULSE 127; RESP 18; O2SAT 96
--- OUTSIDE RECORDS SUMMARY | 2025-05-27 15:17 | XMS_ITS | Clinical Summary ---
Author Organization [place] Address [address] [facility] Attn: Epic Prelude ADT [place] [address] Care Team Providers Care Quarry Plug And Feather Driller Name Role Phone Ivan Galindo MD Primary Care Provider [phone] Allergies Active Allergy Reactions Criticality Noted Date Comments Iodine Other (See Comments) 05/07/2012 States stopped my heart Penicillins Unknown 05/07/2012 Medications metoprolol tartrate (LOPRESSOR) 25 mg tablet Take 12.5 mg by mouth 2 times daily. 03/29/2019 Active mycophenolate sodium (MYFORTIC ORAL) Take 1 Tablet by mouth 2 times daily. 08/18/2019 Active tacrolimus (ENVARSUS XR) 1 mg Tablet Sustained Release 24HR Take 2 mg by mouth daily. 08/18/2019 Active gabapentin (NEURONTIN) 300 mg capsule Two tabs in AM, one tab at noon, two tabs in pm. 150 Capsule 5 11/05/2020 Active cinacalcet (SENSIPAR) 30 mg Tablet Take 30 mg by mouth daily with breakfast. 09/22/2014 Active benzonatate (TESSALON) 100 mg capsule Take 100 mg by mouth 3 times daily as needed. 09/22/2014 Active docusate sodium (COLACE) 100 mg capsule Take 100 mg by mouth 2 times daily as needed. 09/22/2014 Active OMEPRAZOLE MAGNESIUM ORAL Take 1 Tablet by mouth daily. 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 Gender Identity Not on file Sexual Orientation Not on file Last Filed Vital Signs Vital Sign Reading Time Taken Comments Blood Pressure 150/108 03/31/2021 3:50 PM CDT Pulse 95 03/31/2021 3:50 PM CDT Temperature 36.4 C (97.5 F) 03/31/2021 3:50 PM CDT Respiratory Rate 18 03/31/2021 3:50 PM CDT Oxygen Saturation 97% 03/31/2021 3:50 PM CDT Inhaled Oxygen Concentration - - Weight 111.1 kg (245 lb) 03/31/2021 3:50 PM CDT Height 188 cm (6' 2 ) 03/31/2021 3:50 PM CDT Body Mass Index 31.46 03/31/2021 3:50 PM CDT Plan of Treatment Health Maintenance Due Date Last Done Comments DTAP/TDAP/TD VACCINES (1 - Tdap) 1990 HEPATITIS B VACCINES (1 of 3 - 19+ 3-dose series) 05/25 ZOSTER VACCINE (1 of 2) 1990 COLORECTAL SCREENING 2016 Colorectal Cancer Screening 2016 FIT-DNA Q 3 years 2016 FIT/FOBT Q 1 year 2016 Flex Sig/CT Colonography Q 5 years 2016 INFLUENZA VACCINE (#1) 2025 Medical Devices Implanted Type Area Tennis Centre Manager Device Identifier Shelf Expiration Date Model / Serial / Lot Finger Mcp-40 - [id number] Implanted:Qty: 1 on 08/25/2019 by Cosmo Mayer MD Finger Right: Hand [employer] 03/04/2024 MCP-40 / / [id number] Insurance MEDICARE PART A AND B [facility] BLUE ACCESS CHOICE * Guarantor: SUZANNE MACDONALD [place] Account Type Relation to Patient Date of Phone Billing Address Personal/Family [address] [place] [address] RX [employer] RX Member Subscriber Plan / Payer (Ef fective for All Dates) Name:Suzanne Macdonald Relation to Subscriber:Self Name:Suzanne Macdonald Payer ID:Not on file Group ID:[id number] Type:RX Commercial Address: [address] [address] Care Teams Quarry Plug And Feather Driller Relationship Specialty Start Date End Date Ivan Galindo MD [address] [facility] [address] [place] [address] PCP - General Family Practice 09/22/14
--- OUTSIDE RECORDS SUMMARY | 2025-05-27 15:17 | XMS_ITS | Clinical Summary ---
Author Organization [facility] Address [address] [place] [address] Phone Care Team Providers Care Operations Staff Specialist Security Name Role Phone Ivan Galindo MD Primary Care Provider [phone] Allergies Active Allergy Reactions Criticality Noted Date Comments Iodine Other (See Comments) 05/07/2012 States stopped my heart Penicillins Unknown 05/07/2012 Medications levothyroxine (SYNTHROID) 100 mcg Oral tablet Take 100 mcg by mouth daily. Active ALPRAZolam (XANAX) 0.5 mg Oral tablet Take 0.5 mg by mouth 3 times daily as needed. Active docusate sodium (COLACE) 100 mg capsule Take 100 mg by mouth 2 times daily as needed. Active cinacalcet (SENSIPAR) 30 mg Tablet Take 30 mg by mouth daily with breakfast. Active benzonatate (TESSALON) 100 mg capsule Take 100 mg by mouth 3 times daily as needed. Active OMEPRAZOLE MAGNESIUM ORAL Take 1 Tablet by mouth daily. Active metoprolol tartrate (LOPRESSOR) 25 mg tablet Take 12.5 mg by mouth 2 times daily. 03/29/2019 Active tacrolimus (Envarsus XR) 1 mg Tablet Sustained Release 24HR Take 2 mg by mouth daily. Active mycophenolate sodium (MYFORTIC ORAL) Take 1 Tablet by mouth 2 times daily. Active HYDROcodone-berenice taminophen (Dodson) 7.5-325 mg TabletIndicatio ns:Hand arthritis Take 1 Tablet by mouth every 4 hours as needed for Pain. Max Daily Amount: 6 Tablets 30 Tablet 08/25/2019 1:05 PM BUSINESS OPERATIONS CONSULTANT 08/25/2019 Active gabapentin (Neurontin) 300 mg capsule Two tabs in AM, one tab at noon, two tabs in pm. 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 End stage renal disease 02/25/2018 Tobacco use 04/29/2016 Family History Medical History Relation Name Comments Osteoporosis Mother Relation Name Status Comments Mother Social History Tobacco Use Types Packs/Day Years Used Date Smoking Tobacco: Former Cigarettes 2016 Smokeless Tobacco: Current Chew Tobacco Cessation:Counseling Given: No Alcohol Use Standard Drinks/Week Comments Yes 0 (1 standard drink = 0.6 oz pur e alcohol) Sex and Gender Information Value Date Recorded Sex Assigned at Not on file Legal Sex Male 3:38 AM BUSINESS OPERATIONS CONSULTANT Gender Identity Not on file Sexual Orientation Not on file Last Filed Vital Signs Vital Sign Reading Time Taken Comments Blood Pressure 124/76 04/03/2020 11:56 AM CDT Pulse 80 04/03/2020 11:56 AM CDT Temperature 36.5 C (97.7 F) 08/25/2019 12:10 PM BUSINESS OPERATIONS CONSULTANT Respiratory Rate 16 08/25/2019 12:45 PM BUSINESS OPERATIONS CONSULTANT Oxygen Saturation 95% 08/25/2019 12:45 PM BUSINESS OPERATIONS CONSULTANT Inhaled Oxygen Concentration - - Weight 111.1 kg (245 lb) 04/03/2020 11:56 AM CDT Height 188 cm (6' 2 ) 04/03/2020 11:56 AM CDT Body Mass Index 31.46 04/03/2020 11:56 AM CDT Plan of Treatment Health Maintenance Due [...] (#1) 2025 Medical Devices Implanted Type Area Bodywork Therapist Device Identifier Shelf Expiration Date Model / Serial / Lot Finger Mcp-40 - [id number] Implanted:Qty: 1 on 08/25/2019 by Cosmo Mayer MD at [facility] Right: Hand [employer] [facility] 03/04/2024 MCP-40 / / [id number] Insurance MEDICARE PART A AND B BCBS SUPP RX [employer] RX Member Subscriber Plan / Payer (Ef fective for All Dates) Name:You Wyatt Relation to Subscriber:Self Name:You Wyatt Payer ID:Not on file Group ID:[id number] Type:RX Commercial Address: [address] Advance Directives For more information, please contact: [phone] * Full Code (Latest Code Status on File) Date Activated Date Inactivated Comments 08/25/2019 8:51 AM 08/25/2019 3:32 PM Care Teams Operations Staff Specialist Security Relationship Specialty Start Date End Date Ivan Galindo MD PCP - General Family Practice 09/22/14
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
--- NOTE | 2025-05-27 15:48 | PC.NURSE ---
c-collar applied per ED provider request
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
[2025-05-27] MEDS: HYDROcodone-acetaminophen 7.5-325 mg Tablet 1 TAB PO (16:07)
[2025-05-27 16:14] VITALS: RESP 18; O2SAT 99
[2025-05-27] MEDS: morphine 4 mg/mL SDV 1 mL IM (16:14)
[2025-05-27 16:20] VITALS: BP 120/90; PULSE 88; RESP 18; O2SAT 99
[2025-05-27 16:55] VITALS: BP 132/88; PULSE 88; O2SAT 99
--- NOTE | 2025-05-29 09:39 | DCPLANNER ---
messaged ortho for er f/u
== END 2025-05-27 17:01 | disposition home or self-care (01) ==
PROVIDERS: Emergency Provider Emergency Medicine; PCP Family Medicine
DX: S43.402A Unspecified sprain of left shoulder joint, initial encounter (principal); V89.2XXA Person injured in unspecified motor-vehicle accident, traffic, initial encounter; Z72.0 Tobacco use; E11.40 Type 2 diabetes mellitus with diabetic neuropathy, unspecified
CPT/HCPCS: 72125; 73030; 96372; 99284; J2270; J9999

== ENCOUNTER → 2025-05-31 14:03 | Outpatient (BNVA) | payer MEDICARE, BC, SELFPAY | PROVIDERS: PCP Family Medicine; Visit Provider Student in an Organized Health Care Education/Training Program | DX: V89.2XXA Person injured in unspecified motor-vehicle accident, traffic, initial encounter (principal); S49.92XA Unspecified injury of left shoulder and upper arm, initial encounter | CPT/HCPCS: 99213 ==

== ENCOUNTER → 2025-08-01 08:54 | Outpatient (BNVA) | payer MEDICARE, BC, SELFPAY | PROVIDERS: PCP Family Medicine; Visit Provider Student in an Organized Health Care Education/Training Program | DX: S49.92XA Unspecified injury of left shoulder and upper arm, initial encounter (principal); V89.2XXA Person injured in unspecified motor-vehicle accident, traffic, initial encounter; M75.42 Impingement syndrome of left shoulder; M75.110 Incomplete rotator cuff tear or rupture of unspecified shoulder, not specified as traumatic | CPT/HCPCS: 20610; 99213; J3301; J9999 ==

== ENCOUNTER → 2025-08-02 08:20 | Outpatient (BNVA) | payer MEDICARE, BC, SELFPAY | PROVIDERS: PCP Family Medicine; Visit Provider Podiatrist Foot & Ankle Surgery | DX: E11.8 Type 2 diabetes mellitus with unspecified complications (principal); B35.1 Tinea unguium; E11.649 Type 2 diabetes mellitus with hypoglycemia without coma; I73.9 Peripheral vascular disease, unspecified; G62.9 Polyneuropathy, unspecified; L84 Corns and callosities; Z79.85 Long-term (current) use of injectable non-insulin antidiabetic drugs | CPT/HCPCS: 11721 ==